=== PATIENT | male | born 1955 | race Two or more races ===

== ENCOUNTER → 2020-08-01 | Outpatient (CLI) | payer OTHER | END | disposition home or self-care (01) | LOC: OFIC 805 10:49 | PROVIDERS: ATTEND Otolaryngology Otology & Neurotology | DX: H91.21 Sudden idiopathic hearing loss, right ear (principal); R42 Dizziness and giddiness ==

== ENCOUNTER → 2020-08-12 | Outpatient (CLI) | payer OTHER ==
[~2020-08-12] MED LIST: CILOXAN5 ML OTIC; FISH OIL 1,4001 EACH PO; KLOR-CON8 MEQ PO; ORAPRED ODT10 MG PO; SAW PALMETTO450 MG PO; VITAMIN C500 M6 PO; ZINC GLUCONATE100 MG PO
== END | disposition home or self-care (01) ==
LOC: OFIC 805 09:00
PROVIDERS: ATTEND Otolaryngology Otology & Neurotology
DX: H91.21 Sudden idiopathic hearing loss, right ear (principal); R42 Dizziness and giddiness

== ENCOUNTER 2020-08-21 07:36 | Day surgery (SDC) | payer OTHER ==
[~2020-08-21 07:36] MED LIST changes: -CILOXAN5 ML OTIC
[2020-08-21] MEDS ORDERED: CILOXAN5 ML OTIC (09:14)
== END 2020-08-21 11:00 | disposition home or self-care (01) ==
LOC: CIR.AMB 07:36
PROVIDERS: ATTEND Otolaryngology Otology & Neurotology
DX: H91.21 Sudden idiopathic hearing loss, right ear (principal); Z20.828 Contact with and (suspected) exposure to other viral communicable diseases

== ENCOUNTER → 2020-09-04 | Outpatient (CLI) | payer OTHER ==
[~2020-09-04] MED LIST changes: +CILOXAN5 ML OTIC
== END | disposition home or self-care (01) ==
LOC: OFIC 805 14:00
PROVIDERS: ATTEND Otolaryngology Otology & Neurotology
DX: H91.21 Sudden idiopathic hearing loss, right ear (principal); R42 Dizziness and giddiness

== ENCOUNTER 2020-09-11 14:28 | Outpatient (CLI) | payer OTHER | END 2020-09-11 15:53 | disposition home or self-care (01) | LOC: OFIC 805 14:28 | PROVIDERS: ATTEND Otolaryngology Otology & Neurotology | DX: R42 Dizziness and giddiness (principal); H91.21 Sudden idiopathic hearing loss, right ear ==

== ENCOUNTER 2020-11-09 13:19 | Outpatient (CLI) | payer OTHER | END 2020-11-09 14:13 | disposition home or self-care (01) | LOC: OFIC 805 13:19 | PROVIDERS: ATTEND Otolaryngology Otology & Neurotology | DX: R42 Dizziness and giddiness (principal); H61.22 Impacted cerumen, left ear ==